=== PATIENT | female | born 1945 | race Caucasian/White ===

== ENCOUNTER 2022-10-26 09:26 | Outpatient (CLI) | payer MEDICARE | END 2022-10-26 09:27 | disposition home or self-care (01) | LOC: CSHMAMMO 09:26 | PROVIDERS: ATTEND Family Medicine | DX: Z12.31 Encounter for screening mammogram for malignant neoplasm of breast (principal); N63.21 Unspecified lump in the left breast, upper outer quadrant | CPT/HCPCS: 77063; 77067 ==

== ENCOUNTER 2022-10-31 07:45 | Outpatient (CLI) | payer MEDICARE | END 2022-10-31 07:46 | disposition home or self-care (01) | LOC: CSHULT 07:45 | PROVIDERS: ATTEND Family Medicine | DX: R92.8 Other abnormal and inconclusive findings on diagnostic imaging of breast (principal) ==

== ENCOUNTER → 2022-11-03 | Day surgery (SDC) | payer MEDICARE | LOC: CSHULT 12:39 | PROVIDERS: ATTEND Family Medicine | PROC: 0H95XZX Drainage of Chest Skin, External Approach, Diagnostic (ICD-10-PCS; principal; 2022-11-03) | DX: C50.812 Malignant neoplasm of overlapping sites of left female breast (principal); R92.8 Other abnormal and inconclusive findings on diagnostic imaging of breast | CPT/HCPCS: 19083; 88305; 88341; 88342 ==

== ENCOUNTER 2023-12-25 13:06 | Outpatient (CLI) | payer MEDICARE | END 2023-12-25 13:07 | disposition home or self-care (01) | LOC: CSHMAMMO 13:06 | PROVIDERS: ATTEND Family Medicine | DX: Z08 Encounter for follow-up examination after completed treatment for malignant neoplasm (principal); Z85.3 Personal history of malignant neoplasm of breast | CPT/HCPCS: 77066; G0279 ==